=== PATIENT | male | born 1955 | race Caucasian/White ===

== ENCOUNTER 2017-01-09 09:16 | Emergency (ER) | payer BC ==
[~2017-01-09] VITALS: Ht 180.3 cm; Wt 97.0 kg
[~2017-01-09 09:16] MED LIST: ALLEGRA PO; ASPI81TA28 PO; CALCTAB5 PO; CLOP1TAB15 PO; FRRG PO; IBUP-103 PO
[2017-01-09 09:20] VITALS: TEMP 36.8; Ht 180.3 cm; Wt 97.0 kg
[2017-01-09] MEDS ORDERED: XYLOCAINE 1%/SOD BICARB 20 ML VIAL INFIL ONE (09:45)
[2017-01-09 11:15] VITALS: BP 137/95; PULSE 50; O2SAT 96
--- NOTE | 2017-01-10 10:33 | EMERGENCY ROOM VISIT NOTE ---
ED Visit Note First contact with patient: 09:25 Chief Complaint: I cut my right foreman. History of Present Illness: Thursday is a 61-year-old white male who ambulates into the ED complaining of laceration to the anterior aspect of the right foreman. Patient reports he was preparing his asked for work and accidentally cut his left foreman. This occurred approximately an hour prior to arrival at the hospital. He did attempt to control bleeding but it is still minimally bleeding. Patient denies any associated pain but does report the areas tender to palpation. He has not taken any medication for pain prior to arrival at the hospital. Patient denies any associated symptoms including knee pain, ankle pain, leg/ foot weakness/numbness/tingling. Review of Systems: As noted above in history of present illness. Past Medical History: Status post bilateral knee arthroplasties, left shoulder/ upper extremity stent placement due to trauma. Current Medications: Plavix, aspirin. Allergies to Medications: Patient denies. Social History: Patient is currently employed; he feels safe in his home environment; patient denies tobacco use. Tetanus Immunization Status: Patient reports up-to-date. Physical Examination: Vital Signs: Date Time Temp Pulse Resp B/P (MAP) Pulse Ox O2 Delivery O2 Flow Rate FiO2 01/09/17 11:15 50 20 137/95 96 01/09/17 09:20 36.8 62 20 170/109 96 Room Air GENERAL: 61-year-old male in no acute distress, nontoxic-appearing, afebrile and hemodynamically stable. NEUROLOGICAL: Awake, alert and oriented to person, place and time. Answering questions appropriately and following commands. Normal gait. SKIN: Warm, dry and pink. Right Lower Leg: Over the anterior aspect of the foreman just feel to the tibial edge patient has a 6.2 cm full-thickness laceration with minimal bleeding. RIGHT LOWER LEG: Soft tissue injury as noted above. No gross bony deformity. No tenderness in the knee, ankle or foot. 5/5 muscle strength in flexion and extension of the knee and plantar flexion and dorsiflexion of the ankle. Full range of motion of the knee and ankle. Throughout the lower leg and foot the skin was warm and pink and capillary refill was brisk. Distal pulses and sensations were intact. ED Course: Patient is assessed as noted above. Patient's medication list were reviewed. Wound Repair: Complexity: Basic Verbal consent was obtained after the risks and benefits were explained. The skin was prepped with betadine and a sterile field set. Wound edges of the wound was anesthetized with 6.3 ml buffered 1% lidocaine. The wound was explored for foreign bodies and none found. Copious irrigation was performed using sterile saline. With direct pressure the bleeding subsided. Debridement was not performed. The wound edges were approximated using 4-0 Ethilon 11 with simple interrupted sutures. Hemostasis and excellent approximation was achieved. Antibacterial ointment and a sterile dressing applied. No complications and the patient tolerated the procedure well. Patient was educated about tonight's findings and instructed on his treatment plan; he verbalizes understanding and agreement with this plan. Clinical Impression: Laceration of the right lower leg Disposition: Patient discharged home in stable condition; prior to departure he was reassessed and subjectively reported he was still pain and symptom-free. Plan: Comfort measures, wound care, and signs of infection were discussed with the patient. Patient was encouraged to follow-up with personal physician or return emergency department for signs of infection and/or suture removal in 10-12 days.
== END 2017-01-09 11:17 | disposition home or self-care (01) ==
LOC: C.EDB 09:17 → C.EDA 11:17
DX: S81.811A Laceration without foreign body, right lower leg, initial encounter (principal); Z79.02 Long term (current) use of antithrombotics/antiplatelets; Z79.82 Long term (current) use of aspirin; Z96.651 Presence of right artificial knee joint; Z96.652 Presence of left artificial knee joint; X58.XXXA Exposure to other specified factors, initial encounter